=== PATIENT | female | born 1970 | race Hispanic/Latino ===

== ENCOUNTER 2018-01-29 18:19 | Emergency (ER) | payer OTHER, MEDICARE ==
[2018-01-29 18:55] LABS: BASOPHILS % (AUTO) 0.2 % (0.0-5.0); EOSINOPHILS % (AUTO) 0.5 % (0.0-8.0); HEMATOCRIT 43.5 % (36-48); MEAN CORPUSCULAR HEMOGLOBIN 33.1 pg (27.0-33.0); MEAN CORPUSCULAR HGB CONC 34.6 g/dL (32.0-36.0); MEAN CORPUSCULAR VOLUME 95.8 fL (79-99); MONOCYTES % (AUTO) 5.6 % (3.0-13.0); NEUTROPHILS % (AUTO) 71.7 % (40.0-77.0); PLATELET COUNT (AUTO) 223 K/uL (130-400); RED BLOOD CELL COUNT(AUTO) 4.54 MIL/uL (4.00-5.50); RED CELL DISTRIBUTION WIDTH 13.7 % (11.0-15.5); WHITE BLOOD COUNT (AUTO) 8.9 K/uL (4.8-10.8)
[2018-01-29 19:10] LABS: CARBON DIOXIDE 27 mmol/L (21-32); CHLORIDE 103 mmol/L (101-111); CREATININE 0.9 mg/dL (0.5-1.5); GLOMERULAR FILTR. RATE CALC 71 mL/min (>60); GLUCOSE,RANDOM 110 mg/dL (70-105); SODIUM SERUM 139 mmol/L (136-145); UREA NITROGEN, BLOOD 8 mg/dL (7-18)
[2018-01-29 19:29] LABS: ALANINE AMINOTRANSFERASE 66 U/L (12-78); ALBUMIN 3.5 g/dL (3.5-5.0); ASPARTATE AMINOTRANSFERASE 85 U/L (10-37); BILIRUBIN,TOTAL 0.5 mg/dL (0.2-1.0); CREATINE KINASE MB < 0.5 ng/mL (0.5-3.6); CREATINE KINASE, TOTAL 32 U/L (21-232); MYOGLOBIN 16 ng/mL (10-92); TOTAL PROTEIN, SERUM 8.3 g/dL (6.0-8.3); TROPONIN I < 0.04 ng/mL (0.00-0.06)
[2018-01-29 19:31] LABS: INR 1.01 (0.85-1.15); PARTIAL THROMBOPLASTIN TIME 25.8 SEC (26.3-35.5); PROTHROMBIN TIME 10.6 SEC (9.6-11.6)
[2018-01-29] MEDS ORDERED: ACETAMINOPHEN ELIXIR 650 MG/20.3 ML UDCUP ONE (19:36)
[2018-01-29] MEDS ORDERED: FAMOTIDINE/PF 20 MG/2 ML VIAL IV ONE (19:37)
[2018-01-29] MEDS ORDERED: ONDANSETRON HCL 4 MG/2 ML VIAL ONE (19:37)
[2018-01-29] MEDS ORDERED: SODIUM CHLORIDE 0.9% 1000ML 1,000 ML IV ONE (19:37)
[2018-01-29 19:58] LABS: APPEARANCE,URINE SL CLOUDY (CLEAR); BILIRUBIN,URINE NEGATIVE (NEGATIVE); COLOR,URINE YELLOW (YELLOW); GLUCOSE, URINE (UA) NEGATIVE (NEGATIVE); KETONES,URINE NEGATIVE (NEGATIVE); LEUKOCYTE ESTERASE ,URINE MODERATE (NEGATIVE); NITRATE,URINE NEGATIVE (NEGATIVE); OCCULT BLOOD,URINE TRACE-INTACT (NEGATIVE); PROTEIN,URINE NEGATIVE (NEGATIVE); UROBILINOGEN,URINE 0.2 mg/dL (0.2-1.0)
[2018-01-29 20:04] LABS: AMPHET/METH SCREEN,URINE NEGATIVE (NEGATIVE); BARBITURATE SCREEN, URINE NEGATIVE (NEGATIVE); BENZODIAZEPINES SCREEN,URINE NEGATIVE (NEGATIVE); CANNABINOID SCREEN,URINE NEGATIVE (NEGATIVE); COCAINE SCREEN,URINE NEGATIVE (NEGATIVE); OPIATE SCREEN,URINE NEGATIVE (NEGATIVE); PHENCYCLIDINE SCREEN,URINE NEGATIVE (NEGATIVE)
[2018-01-29 20:11] LABS: BACTERIA,URINE Few /HPF (None Seen); SQUAMOUS EPITHELIAL CELL,UR Few /HPF (0-2); TRICHOMONAS,URINE Few /LPF (None Seen)
[2018-01-29 20:13] LABS: MUCUS,URINE Few LPF (None Seen)
[2018-01-29] MEDS ORDERED: LIDOCAINE HCL 2% VISCOUS 15 ML UDCUP ONE (20:35)
[2018-01-29] MEDS ORDERED: MAG HYDROX/AL HYDROX/SIMETH ES 30 ML SUSP UDCUP ONE (20:35)
[2018-01-29] MEDS ORDERED: CEFTRIAXONE SODIUM 1 GM ONE (20:36)
[2018-01-29] MEDS ORDERED: METRONIDAZOLE 500 MG TABLET ONE (20:36)
== END 2018-01-29 21:09 | disposition home or self-care (01) ==
LOC: EDH 18:19
DX: K52.9 Noninfective gastroenteritis and colitis, unspecified (principal); N39.0 Urinary tract infection, site not specified; R50.81 Fever presenting with conditions classified elsewhere; I10 Essential (primary) hypertension; E78.00 Pure hypercholesterolemia, unspecified; J44.9 Chronic obstructive pulmonary disease, unspecified; E11.9 Type 2 diabetes mellitus without complications; Z90.49 Acquired absence of other specified parts of digestive tract; Z98.890 Other specified postprocedural states; Z72.0 Tobacco use
CPT/HCPCS: 36415; 71045; 80053; 80305; 81001; 82550; 82553; 83605; 83874; 84484; 85025; 85610; 85730; 87040; 87088; 93005; 96374; 96375; 99285; J0696; J2405; J3490; J7030

== ENCOUNTER 2019-01-29 17:43 | Emergency (ER) | payer OTHER, MEDICARE ==
[2019-01-29] MEDS ORDERED: KETOROLAC TROMETHAMINE 30MG/ML ONE (18:25)
[2019-01-29] MEDS ORDERED: TRAMADOL HCL 50 MG TABLET ONE (18:26)
== END 2019-01-29 19:19 | disposition home or self-care (01) ==
LOC: EDH 17:43
DX: M25.561 Pain in right knee (principal); J44.9 Chronic obstructive pulmonary disease, unspecified; F32.9 Major depressive disorder, single episode, unspecified; E11.9 Type 2 diabetes mellitus without complications; E78.00 Pure hypercholesterolemia, unspecified; I10 Essential (primary) hypertension; Z79.4 Long term (current) use of insulin
CPT/HCPCS: 96372; 99283; J1885

== ENCOUNTER 2019-05-12 02:15 | Emergency (ER) | payer OTHER, MEDICARE ==
[2019-05-12] MEDS ORDERED: PANTOPRAZOLE SODIUM 40 MG TABLET.DR PO ONE (03:16)
[2019-05-12] MEDS ORDERED: MAG HYDROX/AL HYDROX/SIMETH ES 30 ML SUSP UDCUP ONE (03:16)
[2019-05-12] MEDS ORDERED: LIDOCAINE HCL 2% VISCOUS 15 ML UDCUP ONE (03:16)
[2019-05-12] MEDS ORDERED: ONDANSETRON ODT 4 MG TAB ONE (03:17)
== END 2019-05-12 03:36 | disposition home or self-care (01) ==
LOC: EDH 02:15
DX: R10.13 Epigastric pain (principal); F41.9 Anxiety disorder, unspecified; J44.9 Chronic obstructive pulmonary disease, unspecified; F32.9 Major depressive disorder, single episode, unspecified; E11.9 Type 2 diabetes mellitus without complications; E78.00 Pure hypercholesterolemia, unspecified; I10 Essential (primary) hypertension; Z79.4 Long term (current) use of insulin

== ENCOUNTER 2025-07-10 08:16 | Emergency (ER) | payer OTHER, MEDICAID ==
[~2025-07-10] VITALS: Ht 144.8 cm; Wt 66.7 kg
--- NOTE | 2025-07-10 08:31 | ERN ---
General Chief Complaint: Nausea,Vomiting,Diarrhea Stated Complaint: NAUSEA AND VOMITING Time Seen by MD: 08:18 History of Present Illness Initial Comments 54-year-old female past medical history of hypertension, diabetes, hyperlipidemia, COPD, asthma here for evaluation of three day history of vomiting and diarrhea. Patient states that she has been having worsening abdominal pain vomiting and diarrhea with the associated nausea that started two days ago. It worsened yesterday. Had three episodes of vomiting today with one episode of diarrhea today. States that she feels myalgias and fever. Also pain with urination. Has been drinking hot milk and drinking fluids. No cough. No chest pain or shortness a breath. No palpitations. Allergies: Coded Allergies: No Known Drug Allergies (Unverified Allergy, Unknown, 01/29/19) Past Medical History Past Medical History: Asthma, COPD, Diabetes-Type II, High Cholesterol, Hypertension Medical History Other: H PYLORI Constitutional: (+) chills, (+) fever Gastrointestinal/Abdominal: (+) nausea, (+) vomiting, (+) diarrhea Physical Exam Physical Exam Dictation GENERAL APPEARANCE NAD, activity normal for age, well developed/ well nourished, no cyanosis, pallor, or diaphoresis. EYES lids/conjunctiva normal. EARS/NOSE/THROAT Mucous membranes moist, nares normal, lips/teeth normal uvula midline without oral pharyngeal erythema, exudate or swelling TMs normal bilaterally. No lymphangitis/lymphedema. HEAD/NECK normocephalic atraumatic, no facial trauma, neck is supple. RESPIRATORY respiratory effort normal, speaks in full sentences, no tripod position, no accessory muscle use. Lungs clear to auscultation without rhonchi, wheezes, rales CARDIAC Regular rate and rhythm, no edema. ABDOMINAL Soft, ND/NT. No evidence of fluid wave. No pulsatile masses on exam, rebound tenderness, Mena sign or pain over Mcburney's point. MUSCLES/EXTREMITIES No abnormal range of motion, no swelling. SKIN Warm, pink and dry. No rashes, dermatoses, petechiae or lesions. NEUROLOGICAL Speech is clear and appropriate. Normal level of consciousness. Gait and coordination are normal. 5/5 strength in all extremities. PSYCH Normal mood and affect. Judgement/competence is appropriate Eye: bilateral eye normal inspection, bilateral eye PERRL, bilateral eye EOMI Ear, Nose, Throat: (+) hearing grossly normal, (+) normal ENT inspection, (+) moist mucous membraine Neck: (+) normal inspection, (+) supple Results Laboratory and Microbiology Lab and Micro Result Laboratory Tests Test 07/10/25 08:30 07/10/25 08:31 White Blood Count 4.6 K/uL (4.8-10.8) L Red Blood Count 4.67 MIL/uL (4.00-5.50) Hemoglobin 15.3 g/dL (12.0-16.0) Hematocrit 44.6 % (36-48) Mean Corpuscular Volume 95.5 fL (79-99) Mean Corpuscular Hemoglobin 32.8 pg (27.0-33.0) Mean Corpuscular Hemoglobin Concent 34.3 g/dL (32.0-36.0) Red Cell Distribution Width 12.9 % (11.0-15.5) Platelet Count 113 K/uL (130-400) L Mean Platelet Volume 9.7 fL (7.5-10.5) Immature Granulocyte % (Auto) 0.2 % (0-1) Neutrophils (%) (Auto) 50.5 % (40.0-77.0) Lymphocytes (%) (Auto) 37.7 % (21.0-51.0) Monocytes (%) (Auto) 10.9 % (3.0-13.0) Eosinophils (%) (Auto) 0.0 % (0.0-8.0) Basophils (%) (Auto) 0.7 % (0.0-5.0) Neutrophils # (Auto) 2.3 K/uL (1.8-7.7) Lymphocytes # (Auto) 1.7 K/uL (1.0-4.8) Monocytes # (Auto) 0.5 K/uL (0.1-1.0) Eosinophils # (Auto) 0.00 K/uL (0.00-0.70) Basophils # (Auto) 0.03 K/uL (0.00-0.20) Absolute Immature Granulocyte (auto 0.01 K/uL (0-1) Nucleated Red Blood Cells 0.0 % (0.0-0.19) Sodium Level 133 mmol/L (136-145) L Potassium Level 3.9 mmol/L (3.5-5.1) Chloride Level 99 mmol/L (101-111) L Carbon Dioxide Level 28 mmol/L (21-32) Blood Urea Nitrogen 6 mg/dL (7-18) L Creatinine 0.7 mg/dL (0.5-1.0) Glomerular Filtration Rate Calc 101 mL/min (>90) Random Glucose 170 mg/dL (70-105) H Total Calcium 8.5 mg/dL (8.5-10.1) Total Bilirubin 0.6 mg/dL (0.2-1.0) Direct Bilirubin 0.2 mg/dL (0.0-0.3) Aspartate Amino Transf (AST/SGOT) 89 U/L (10-37) H Alanine Aminotransferase (ALT/SGPT) 36 U/L (12-78) Alkaline Phosphatase 162 U/L (50-136) H Total Protein 8.4 g/dL (6.0-8.3) H Albumin 3.2 g/dL (3.5-5.0) L Lipase 36 U/L (16-77) Urine Color YELLOW (YELLOW) Urine Appearance CLEAR (CLEAR) Urine pH 7.5 (5.0-8.0) Urine Specific [place] 1.013 (1.001-1.031) Urine Protein 10 mg/dL (NEGATIVE) H Urine Glucose (UA) NEGATIVE mg/dL (NEGATIVE) Urine Ketones NEGATIVE mg/dL (NEGATIVE) Urine Occult Blood +- (TRACE) (NEGATIVE) H Urine Nitrate NEGATIVE (NEGATIVE) Urine Bilirubin NEGATIVE mg/dL (NEGATIVE) Urine Urobilinogen 0.2 mg/dL (0.2-1.0) Urine Leukocyte Esterase NEGATIVE Kemi/uL Urine RBC 2-5 /HPF (0-1) H Urine WBC 0-1 /HPF (0-1) Urine Squamous Epithelial Cells MOD /HPF (0-2) Urine Bacteria None /HPF (None Seen) MDM 54-year-old female with likely gastroenteritis. We will get labs and give IV fluids. Disposition pending results of labs and clinical improvement. MDM: DIFFERENTIAL DIAGNOSIS: Gastroenteritis, RATIONALE: TESTS CONSIDERED AND ORDERED SECONDARY TO SHARED DECISION MAKING INCLUDE: PREVIOUS OUTSIDE RECORDS REVIEWED: OLD ER VISITS. RISK OF COMPLICATION AND/OR MORBIDITY OR MORTALITY OF PATIENT MANAGEMENT: NONE MEDICATIONS-PER MEDICATION RECONCILIATION NEED FOR HOSPITALIZATION: PATIENT DOES NOT MEET CRITERIA FOR HOSPITALIZATION. NEED FOR EMERGENCY MAJOR/MINOR SURGERY: NO THERE ARE NO SOCIAL CONCERNS WITH THIS PATIENT. PRESCRIPTION DRUG MANAGEMENT PRESCRIPTIONS WILL INCLUDE SYMPTOMATIC CARE PATIENT'S PRIOR EXTERNAL MEDICAL RECORDS FROM OTHER ER VISITS WERE REVIEWED BY ME INDICATED. PRIOR TESTING AND RESULTS FROM PREVIOUS VISITS WERE REVIEWED. PRIOR TESTS WERE TAKEN INTO ACCOUNT WITH MEDICAL DECISION MAKING AND RESOURCE UTILIZATION, INDEPENDENT HISTORIAN/HISTORIANS WERE USED TO OBTAIN COMPLETE MEDICAL HISTORY. I INDEPENDENTLY INTERPRETED THE TEST THAT WERE PERFORMED, RESULTS WERE REVIEWED BY ME AND CONSIDERED FINDINGS ON RADIOLOGY IF ORDERED. MEDICAL MANAGEMENT AND EXAMINATION INTERPRETATION DISCUSSIONS WERE HAD BY ME WITH OTHER QUALIFIED HEALTHCARE PROFESSIONALS INDICATED FOR THE PATIENT'S C ARE. ED Course Orders Procedure Category Date Status Time Basic Metabolic Panel LAB 07/10/25 Complete 08:18 Cbc With Differential LAB 07/10/25 Complete 08:18 Hepatic Function Panel LAB 07/10/25 Complete 08:18 Lipase LAB 07/10/25 Complete 08:18 Ondansetron 4mg Inj PHA 07/10/25 Complete (Zofran 4mg Inj) 08:30 0.9%Nacl 1000ml (Ns PHA 07/10/25 In Process 1000ml) 08:30 Urinalysis Profile LAB 07/10/25 Complete 08:18 Dicyclomine Hcl PHA 07/10/25 Complete (Bentyl 20mg Tab) 09:00 Acetaminophen 500mg PHA 07/10/25 Complete Tab (Tylenol 500mg T 09:00 Current Medications Medications (Trade) Dose Ordered Sig/Magdaleno Route PRN Reason Start Time Stop Time Status Last Admin Dose Admin Acetaminophen (TYLenol 500MG TAB) 500 mg ONCE ONCE PO 07/10/25 09:00 07/10/25 09:01 DC 07/10/25 08:43 Dicyclomine HCl (Bentyl 20mg Tab) 20 mg ONCE ONCE PO 07/10/25 09:00 07/10/25 09:01 DC 07/10/25 08:43 Ondansetron HCl (zoFRAN 4MG INJ) 4 mg ONCE ONCE IVP 07/10/25 08:30 07/10/25 08:31 DC 07/10/25 08:43 Sodium Chloride 1,000 ml @ 0 mls/hr Q0M IV 07/10/25 08:30 08/09/25 08:29 07/10/25 08:43 Vital Signs Date Time Temp Pulse Resp B/P (MAP) Pulse Ox O2 Delivery O2 Flow Rate FiO2 07/10/25 08:44 100.2 87 14 125/88 97 Room Air* 0 21 07/10/25 08:43 100.2 07/10/25 08:17 98.6 87 16 139/83 98 Room Air 9:47 a.m.: Patient re-evaluated. She states he feels much better. No vomiting. Labs reassuring. Reviewed all labs with the patient. Reassuring at this time. Discharge home. Patient's prior external medical records from other ER visits were reviewed by me as indicated. Prior testing and results from previous visits were reviewed. Prior tests were taken into account with medical decision making and resource utilization, independent historian/historians were used to obtain complete medical history. I independently interpreted the test that were performed, results were reviewed by me and considered findings on radiology if ordered. Medical management and examination interpretation discussions were had by me with other qualified healthcare professionals as indicated for the patient's care. Labs and imaging reviewed with patient. All questions answered at this time. Patient advised to follow up with primary care physician in the next few days. Patient well-appearing, no acute distress. Vital signs stable. Will discharge at this time. Further history obtained. Patient states that she ate bad fajitas 2-3 days ago DX & DISP Disposition: Discharge Departure Impression: Primary Impression: Gastroenteritis Additional Impression: Hyponatremia Condition: Stable Scripts Ondansetron (Ondansetron Odt) 4 Mg Tab.rapdis 1 TAB PO Q6HPRN PRN for nausea/vomiting for 4 Days, #16 TAB 0 Refills Prov: CHARLES CAMARGO MD 07/10/25 Referrals: STEFANIE RUIZ MD (PCP) CHARLES CAMARGO MD Jul 10, 2025 08:31
[2025-07-10 08:39] LABS: IMMATURE GRANULOCYTE ABSOLUTE 0.01 K/uL (0-1); NUCLEATED RED BLOOD CELLS 0.0 % (0.0-0.19); PLATELET COUNT (AUTO) 113 K/uL (130-400); RED BLOOD CELL COUNT(AUTO) 4.67 MIL/uL (4.00-5.50); RED CELL DISTRIBUTION WIDTH 12.9 % (11.0-15.5); WHITE BLOOD COUNT (AUTO) 4.6 K/uL (4.8-10.8)
[2025-07-10] MEDS: DICYCLOMINE HCL 20 MG TAB PO ONE (08:43)
[2025-07-10] MEDS: 0.9%NACL 1000ML 1,000 ML IV SCH (08:43)
[2025-07-10 08:48] LABS: CREATININE 0.7 mg/dL (0.5-1.0); GLOMERULAR FILTR. RATE CALC 101.0 mL/min (>90); GLUCOSE,RANDOM 170.0 mg/dL (70-105); SODIUM SERUM 133.0 mmol/L (136-145); UREA NITROGEN, BLOOD 6.0 mg/dL (7-18)
[2025-07-10 08:52] LABS: ASPARTATE AMINOTRANSFERASE 89.0 U/L (10-37); TOTAL PROTEIN, SERUM 8.4 g/dL (6.0-8.3)
[2025-07-10 09:03] LABS: APPEARANCE,URINE CLEAR (CLEAR); GLUCOSE, URINE (UA) NEGATIVE (NEGATIVE); LEUKOCYTE ESTERASE ,URINE NEGATIVE Leu/uL (NEGATIVE); NITRATE,URINE NEGATIVE (NEGATIVE); OCCULT BLOOD,URINE +- (TRACE) (NEGATIVE)
[2025-07-10 09:11] LABS: ADD UA MICROSCOPIC YES
[2025-07-10 09:16] LABS: SQUAMOUS EPITHELIAL CELL,UR MOD /HPF (0-2)
[2025-07-10 09:43] VITALS: TEMP 99.2
[2025-07-10] MEDS ORDERED: ONDA-243 PO (09:48)
[2025-07-10 10:05] VITALS: BP 136/61; PULSE 76; RESP 16; TEMP 99.2; O2SAT 98
== END 2025-07-10 10:06 | disposition home or self-care (01) ==
LOC: EDH 08:16
DX: K52.9 Noninfective gastroenteritis and colitis, unspecified (principal); E87.1 Hypo-osmolality and hyponatremia; J44.89 Other specified chronic obstructive pulmonary disease; I10 Essential (primary) hypertension; E78.00 Pure hypercholesterolemia, unspecified; E11.9 Type 2 diabetes mellitus without complications
CPT/HCPCS: 99283; 96374; 80076; 80048; 83690; 85025; 81001; 36415; J7030; J2405; 96361